=== PATIENT | female | born 1950 | race Caucasian/White ===

== ENCOUNTER 2019-01-24 10:53 | Inpatient (IN) ==
--- NOTE | 2019-01-24 11:26 | EKG Report ---
Test Performed on : 01/24/2019 11:03:01 AM Test Reason : dizziness, low bp Blood Pressure : / mmHG Vent. Rate : 090 BPM Atrial Rate : 090 BPM P-R Int : 134 ms QRS Dur : 086 ms QT Int : 370 ms P-R-T Axes : 028 001 032 degrees QTc Int : 452 ms Sinus rhythm. with occasional premature ventricular complexes. Possible Inferior infarct , age undetermined Abnormal ECG When compared with ECG of 23-JAN-2015 19:32, premature ventricular complexes. are now present ST now depressed in Lateral leads Nonspecific T wave abnormality no longer evident in Lateral leads QT has lengthened Unconfirmed Result
[2019-01-24] MEDS ORDERED: ANTIVERT PO ONE (13:13)
[2019-01-24] MEDS ORDERED: NS 1,000 ML IV ONE (13:13)
--- NOTE | 2019-01-24 13:29 | PROVIDER DOCUMENTATION ---
HPI-Neurological Disorder - General Chief Complaint: Dizziness Stated Complaint: DIZZY X A COUPLE OF WEEKS Time Seen by Provider: 01/24/19 12:48 Source: patient Allergies/Adverse Reactions: Patient Allergies Allergy/AdvReac Type Severity Reaction Status Date / Time Penicillins Allergy Mild RASH Verified 07/02/15 10:53 Home Medications: Home Medication List Medication Instructions Recorded Confirmed Last Taken Type Calcium Carbonate/Vit D3 [Caltrate 1 each PO DAILY 11/05/12 01/24/19 09/17/15 09:00 History 600 + D] Glucosamine 1,000 mg PO DAILY 11/05/12 09/18/15 09/17/15 09:00 History Multivitamin [Multivitamins] 1 each PO DAILY 11/05/12 09/18/15 09/17/15 09:00 History Omeprazole [Prilosec] 20 mg PO DAILY 11/05/12 09/18/15 09/17/15 09:00 History Diltiazem C.d. [Cardizem Cd] 180 mg PO DAILY 01/23/15 01/24/19 09/17/15 07:30 History Fexofenadine [Marcy] 180 mg PO DAILY 01/23/15 01/24/19 09/17/15 16:00 History ATORVAstatin [Lipitor] 0.5 tab PO QHS 01/24/15 01/24/19 09/17/15 21:00 History Apixaban [Eliquis] 5 mg PO BID 01/24/15 01/24/19 09/17/15 09:00 History Losartan/Hydrochlorothiazide 1 each PO DAILY 01/24/15 01/24/19 09/17/15 09:00 History [Losartan-Hctz 100-25 mg Tab] Tramadol [Ultram] 50 mg PO Q6H PRN PRN #20 tab 11/24/18 Unknown Rx - History of Present Illness-Neuro Nature of Presenting Problem: Patient is a 68 yowf who complains of dizziness x 2 months that began after a fall and head injury. Dizziness exacerbated by position changes and relieved by lying down. Reports intermittent headaches as well. Denies chest pain, SOB, extremity weakness/numbness, visual changes, or any other symptoms. She is non- toxic in appearance. Review of Systems - Adult - REVIEW OF SYSTEMS - ADULT Constitutional: reports: no symptoms reported Eyes: reports: no symptoms reported Ears, Nose, Mouth & Throat: reports: no symptoms reported Cardiovascular: reports: no symptoms reported Respiratory: reports: no symptoms reported Gastrointestinal: reports: no symptoms reported Genitourinary: reports: no symptoms reported Musculoskeletal: reports: no symptoms reported Integumentary: reports: no symptoms reported Neurological: reports: see HPI, dizziness/vertigo, headache/migraines. denies: ataxia, loss of balance, numbness, paresthesia, seizure, slurred speech, syncope, tremors Psychiatric: reports: no symptoms reported Endocrine: reports: no symptoms reported Hematologic/Lymphatic: reports: no symptoms reported Allergic/Immunologic: reports: no symptoms reported All Other Systems: Reviewed and Negative Past History - Adult - PAST MEDICAL HISTORY-ADULT Review of Records: reports: Nursing Assessment Review, Medications Reviewed, Social history reviewed & non-contributory. Cardiovascular: reports: A-Fib, HTN, hyperlipidemia Gastrointestinal: reports: GERD Obstetrical/Gynecological: reports: other (breast cancer) Genitourinary: reports: denies history Musculoskeletal: reports: denies history Neurological: reports: denies history Psychiatric: reports: denies history Endocrine/Immune: reports: denies history - PRIOR SURGERIES/PROCEDURES Surgical/Procedure History: reports: BTL - IMMUNIZATION STATUS Childhood Immunizations: See Nurse Assessment Flu Vaccine: See Nurse Assessment - FAMILY HISTORY Family History: reviewed, not pertinent - SOCIAL HISTORY Smoking: non-smoker Physical Exam- Neurological - Physical Exam-Neuro Initial Vital Signs Reviewed: Yes General Appearance: alert, no apparent distress. negative: lethargic, slow to respond Eye Exam: bilateral eye: normal inspection, PERRL, EOMI HENMT: normocephalic/atraumatic, moist mucous membranes, normal ENT inspection, TMs normal Head Injury: no evidence of injury Neck: non-tender, full range of motion, supple, normal inspection Respiratory: chest non-tender, lungs clear, normal breath sounds, no pleuratic chest pain, no respiratory distress, no accessory muscle use Cardiovascular: normal peripheral pulses, regular rate, rhythm, no edema, no gallop, no JVD, no murmur Abdominal Exam: normal bowel sounds, non tender, soft Extremity: normal range of motion, non-tender, normal gait, normal inspection, n ormal capillary refill materials associate Exam: normal hearing, normal speech, PERRL. negative: abnormal gag reflex, abnormal pupil position, abnormal speech, facial asymmetry, facial droop, facial paresthesias, facial weakness, hearing deficit (R), hearing deficit (L), tongue deviation to R, tongue deviation to L Coordination/Gait: normal gait Motor/Sensory: no motor deficit, no sensory deficit, no pronator drift Neurologic: materials associate II-XII nml as tested, grossly normal, no motor/sensory deficits Integumentary: normal color, normal turgor, warm/dry. negative: cyanosis, diap horesis, jaundice, mottled, pallor Psych/Mental Status: normal mood/affect, normal thought content, normal thought process, oriented x 3 - Gl[place]ow Coma Scale Best Eye Response: (4) open spontaneously Best Verbal Response: (5) oriented Best Motor Response: (6) obeys commands Progress - PLAN OF CARE/RESULTS Progress/Plan/Lab Results: Vital Signs - 8 hr 01/24/19 10:56 01/24/19 13:12 01/24/19 14:20 Temperature 98.2 F Pulse Rate 86 96 H 94 H Pulse Rate [Sitting] Pulse Rate [Standing] Pulse Rate [Supine] Respiratory Rate 16 18 17 Blood Pressure 99/62 159/85 Blood Pressure [Sitting] Blood Pressure [Standing] Blood Pressure [Supine] O2 Sat by Pulse Oximetry 93 L 94 L 92 L 01/24/19 14:26 01/24/19 14:31 01/24/19 14:32 Temperature Pulse Rate 98 H 105 H 102 H Pulse Rate [Sitting] Pulse Rate [Standing] Pulse Rate [Supine] Respiratory Rate 20 22 21 Blood Pressure 146/92 134/82 151/89 Blood Pressure [Sitting] Blood Pressure [Standing] Blood Pressure [Supine] O2 Sat by Pulse Oximetry 01/24/19 14:39 01/24/19 14:50 01/24/19 14:59 Temperature Pulse Rate 99 H 102 H Pulse Rate [Sitting] 104 H Pulse Rate [Standing] 105 H Pulse Rate [Supine] 97 H Respiratory Rate 15 22 Blood Pressure 150/92 Blood Pressure [Sitting] 141/93 Blood Pressure [Standing] 134/82 Blood Pressure [Supine] 146/92 O2 Sat by Pulse Oximetry 01/24/19 15:02 01/24/19 15:30 01/24/19 15:32 Temperature Pulse Rate 98 H 96 H 95 H Pulse Rate [Sitting] Pulse Rate [Standing] Pulse Rate [Supine] Respiratory Rate 14 17 17 Blood Pressure 141/87 131/97 Blood Pressure [Sitting] Blood Pressure [Standing] Blood Pressure [Supine] O2 Sat by Pulse Oximetry 90 L 90 L Laboratory Results - last 24 hr 01/24/19 01/24/19 01/24/19 11:07 13:21 13:21 WBC 10.41 RBC 4.91 Hgb 15.1 Hct 43.8 MCV 89.2 MCH 30.8 MCHC 34.5 RDW Std Deviation 12.7 Plt Count 185 MPV 10.0 Immature Gran % (Auto) 0.6 H Neut % (Auto) 78.2 H Lymph % (Auto) 14.1 L [place] % (Auto) 6.6 Eos % (Auto) 0.2 Baso % (Auto) 0.3 Immature Gran # (Auto) 0.06 H Neut # (Auto) 8.14 H Lymph # (Auto) 1.47 [place] # (Auto) 0.69 H Eos # (Auto) 0.02 Baso # (Auto) 0.03 PT INR PTT (Actin FS) Sodium 141 Potassium 4.4 Chloride 102 Carbon Dioxide 19 L Anion Gap 20 BUN 16 Creatinine 1.3 H Estimated GFR/1.73 m2 40 BUN/Creatinine Ratio 12 Glucose 125 H POC Glucose 171 H Calculated Osmolality 284 Calcium 9.2 Magnesium 2.1 Total Bilirubin 0.82 AST 48 H ALT 28 Alkaline Phosphatase 60 Creatine Kinase Troponin T Igd-W-Jqdvxojcylo Pept Total Protein 7.5 Albumin 4.4 Globulin 3.1 Albumin/Globulin Ratio 1.4 Urine Source Urine Color Urine Turbidity Urine pH Ur Specific [place] Urine Protein Ur Glucose (Stick) Ur Ketones (Stick) Urine Blood Urine Nitrite Urine Bilirubin Urobilinogen Dipstick Urine Leukocytes Urine WBC (Auto) Urine RBC (Auto) U Epithel Cells (Auto) Urine Bacteria (Auto) 01/24/19 01/24/19 01/24/19 13:21 13:21 13:21 WBC RBC Hgb Hct MCV MCH MCHC RDW Std Deviation Plt Count MPV Immature Gran % (Auto) Neut % (Auto) Lymph % (Auto) [place] % (Auto) Eos % (Auto) Baso % (Auto) Immature Gran # (Auto) Neut # (Auto) Lymph # (Auto) [place] # (Auto) Eos # (Auto) Baso # (Auto) PT INR PTT (Actin FS) Sodium Potassium Chloride Carbon Dioxide Anion Gap BUN Creatinine Estimated GFR/1.73 m2 BUN/Creatinine Ratio Glucose POC Glucose Calculated Osmolality Calcium Magnesium Total Bilirubin AST ALT Alkaline Phosphatase Creatine Kinase 159 Troponin T 0.336 H* Dyf-Y-Ujbsdmcqfba Pept 632 H Total Protein Albumin Globulin Albumin/Globulin Ratio Urine Source Urine Color Urine Turbidity Urine pH Ur Specific [place] Urine Protein Ur Glucose (Stick) Ur Ketones (Stick) Urine Blood Urine Nitrite Urine Bilirubin Urobilinogen Dipstick Urine Leukocytes Urine WBC (Auto) Urine RBC (Auto) U Epithel Cells (Auto) Urine Bacteria (Auto) 01/24/19 01/24/19 01/24/19 14:24 15:09 15:09 WBC RBC Hgb Hct MCV MCH MCHC RDW Std Deviation Plt Count MPV Immature Gran % (Auto) Neut % (Auto) Lymph % (Auto) [place] % (Auto) Eos % (Auto) Baso % (Auto) Immature Gran # (Auto) Neut # (Auto) Lymph # (Auto) [place] # (Auto) Eos # (Auto) Baso # (Auto) PT 15.5 INR 1.14 PTT (Actin FS) 28.8 Sodium Potassium Chloride Carbon Dioxide Anion Gap BUN Creatinine Estimated GFR/1.73 m2 BUN/Creatinine Ratio Glucose POC Glucose Calculated Osmolality Calcium Magnesium Total Bilirubin AST ALT Alkaline Phosphatase Creatine Kinase 138 Troponin T 0.344 H* Ori-P-Ouldtpmvssc Pept Total Protein Albumin Globulin Albumin/Globulin Ratio Urine Source Urine Color Urine Turbidity Urine pH Ur Specific [place] Urine Protein Ur Glucose (Stick) Ur Ketones (Stick) Urine Blood Urine Nitrite Urine Bilirubin Urobilinogen Dipstick Urine Leukocytes Urine WBC (Auto) Urine RBC (Auto) U Epithel Cells (Auto) Urine Bacteria (Auto) 01/24/19 15:11 WBC RBC Hgb Hct MCV MCH MCHC RDW Std Deviation Plt Count MPV Immature Gran % (Auto) Neut % (Auto) Lymph % (Auto) [place] % (Auto) Eos % (Auto) Baso % (Auto) Immature Gran # (Auto) Neut # (Auto) Lymph # (Auto) [place] # (Auto) Eos # (Auto) Baso # (Auto) PT INR PTT (Actin FS) Sodium Potassium Chloride Carbon Dioxide Anion Gap BUN Creatinine Estimated GFR/1.73 m2 BUN/Creatinine Ratio Glucose POC Glucose Calculated Osmolality Calcium Magnesium Total Bilirubin AST ALT Alkaline Phosphatase Creatine Kinase Troponin T Clu-F-Oztzitzfozq Pept Total Protein Albumin Globulin Albumin/Globulin Ratio Urine Source CLEAN CATCH Urine Color YELLOW Urine Turbidity HAZY Urine pH 6.0 Ur Specific [place] 1.008 Urine Protein NEGATIVE Ur Glucose (Stick) NEGATIVE Ur Ketones (Stick) TRACE A Urine Blood NEGATIVE Urine Nitrite POSITIVE A Urine Bilirubin NEGATIVE Urobilinogen Dipstick NORMAL Urine Leukocytes MODERATE A Urine WBC (Auto) TNTC A Urine RBC (Auto) <10 U Epithel Cells (Auto) <10 Urine Bacteria (Auto) 4+ Orders Category Date Time Status Cardiac Monitoring DIRECTED Care 01/24/19 13:13 Active Nursing- Obtain EKG ONCE Care 01/24/19 14:51 Active Orthostatic Vital Signs NOW Care 01/24/19 13:12 Active CHEST-2 VIEWS [RAD] Stat Exams 01/24/19 13:[address] HEAD W/O CONTRAST [CT] Stat Exams 01/24/19 13:13 Completed BNP [PRO B-NATRIURETIC PEPTIDE] Stat Lab 01/24/19 13:21 Completed CBC WITH DIFF [HEME] Stat Lab 01/24/19 13:21 Completed CK PROFILE [SP CHEM] Stat Lab 01/24/19 13:21 Completed CK PROFILE [SP CHEM] Stat Lab 01/24/19 15:09 Completed COMPREHENSIVE METABOLIC PANEL [CHEM] Stat Lab 01/24/19 13:21 Completed MAGNESIUM [CHEM] Stat Lab 01/24/19 13:21 Completed PROTIME WITH INR [COAG] Stat Lab 01/24/19 14:24 Completed PTT [COAG] Stat Lab 01/24/19 14:24 Completed TROPONIN T Stat Lab 01/24/19 13:21 Completed TROPONIN T Stat Lab 01/24/19 15:09 Completed UA NIMS W/REFLEX CULT [URINALYSIS] Stat Lab 01/24/19 15:11 Completed URINE CULTURE [RM] Routine Lab 01/24/19 16:03 Received 0.9% Sodium Chloride Inj [Ns] 1,000 ml Med 01/24/19 13:13 Discontinued IV 999 mls/hr Aspirin Med 01/24/19 14:19 Discontinued 325 mg PO NOW ONE Aspirin Med 01/24/19 14:51 Discontinued 325 mg PO NOW ONE Meclizine [Antivert] Med 01/24/19 13:13 Discontinued 25 mg PO NOW ONE Nitroglycerin Med 01/24/19 14:19 Discontinued 1 inch TOP NOW ONE EKG [EKG] Stat Ther 01/24/19 11:02 Draft EKG [EKG] Stat Ther 01/24/19 13:12 Draft EKG [EKG] Stat Ther 01/24/19 14:51 Ordered 1431- Dr. Kimani lemos. 1645- Dr. Kimani lemos to discuss repeat troponin and CK result. Pt in agreement with admission plan. Result Diagrams: 01/24/19 13:21 01/24/19 13:21 - EKG 1 Time of EKG reading by physician:: 11:05 EKG Read and Signed by:: Jatin Collins EKG Interpretation (*Must complete 3 of following elements*): Abnormal Rate: 90 Rhythm: SR with occasional PVCs QRS: normal ST Wave: normal 2 Time of EKG reading by physician:: 14:37 EKG Read and Signed by:: Jatin Collins EKG Interpretation (*Must complete 3 of following elements*): Abnormal Rate: 96 Rhythm: NSR with nonspecific ST and T wave abnormality QRS: normal ST Wave: normal - XRAY 1 XRAY Study: Chest (IMPRESSION: Negative exam. Electronically signed by Geovany Pinto 01/24/2019 2:08 PM) - CT/MRI 1 CT Study: Head (IMPRESSION: 1.No hemorrhage 2.Mild atrophy This exam was performed using automated exposure control, adjustment of mA or kV according to patient size, and/or use of iterative reconstruction technique. Electronically signed by Cornelius Dawkins 01/24/2019 2:02 PM) - CONSULTS/PCP/HOSPITALIST Notification #1 *Consult/PCP/Hospitalist*: Dr. Harman Time Discussed: 14:50 Reason/Comments: elevated troponin, dizziness Consult Disposition: other (md states to repeat tropnin and add ck profile) Departure - Departure Date of Disposition Decision: 01/24/19 Time of Disposition Decision: 17:10 DIAGNOSIS: Elevated troponin, Dizziness Disposition: ADMITTED INPATIENT 09 Certified Medical Emergency: Emergent Condition: Serious Referrals and Follow-Ups: Matt Harman MD [Primary Care Provider] - - Critical Care Note This patient required my direct & personal management of CC.: No Attestation - Physician/ NAFISA Attestation Patient care was provided by Advanced Practice Provider:: Yes Advanced Practice Provider:: Rei Gómez Advanced Practice Provider documentation review:: The Mid-level provider documentation, treatment plan and medical decision making was reviewed by the physician who agrees with all treatment and medical decision making by the MLP. The physician spent face to face time with patient:: No Advanced Practice Provider documentation review:: Supervising physician onsite and consulted in the evaluation and care of this patient. The physician did not have a face to face encounter with the patient. - NIH Stroke Scale NIH Type: Initial Evaluation Level of Consciousness: 0-Alert LOC Questions (ask month and age): 0-Answers Both Correctly LOC Commands (ask to open & close eyes;make a fist, let go): 0-Obeys Both Correctly Best Gaze (horizontal eye movement): 0-Normal Visual (use finger movement, counting or visual threat): 0-No Visual Loss Facial Palsy (show teeth or raise eyebrows & close eyes tght: 0-Symmetrical M ovement Motor Function-left arm: 0-Normal Motor Function-right arm: 0-Normal Motor Function-left le-Normal Motor Function-right le-Normal Limb Ataxia(lwsmlj-eyrb-cukgea, or heel to rios): 0-No Ataxia Sensory(pin prick to face,arms,trunk,legs-compare side/side): 0-No Ataxia Best Language(name item/read sentence.Ex-Down to Earth): 0-No Aphasia Dysarthria(Pt read words or say words Ex.Mama,Tip-Top,Thanks: 0-Normal Articulation Extinction and Inattention: 0-Normal Modified [place] Score Criteria: 0-no symptoms - HEART Score HEART Score: History: Slightly Suspicious HEART Score: ECG: Normal HEART Score: Age: > or = 65 Years HEART Score: Risk Factors for Atherosclerotic Disease: > or = 3 Risk Factors or History of Atherosclerotic Disease HEART Score: Troponin: 1-3x Normal Limit Total HEART Score:: 5
[2019-01-24 13:36] LABS: BASO# 0.03 X1000 (0.0-0.2); BASO% 0.3 % (0.0-0.8); EOS# 0.02 X1000 (0.0-0.7); EOS% 0.2 % (0.0-10.0); HEMATOCRIT 43.8 % (37.0-47.0); HEMOGLOBIN 15.1 g/dL (12.0-16.0); IMM GRAN# 0.06 X1000 (0.0-0.04); IMM GRAN% 0.6 % (0.0-0.5); LYMPH# 1.47 X1000 (1.2-3.4); LYMPH% 14.1 % (20.5-51.1); MCH 30.8 PG (27-31); MCHC 34.5 g/dL (33-37); MCV 89.2 FL (81-99); MONO# 0.69 X1000 (0.11-0.59); MONO% 6.6 % (1.7-9.3); NEUT# 8.14 X1000 (1.4-6.5); NEUT% 78.2 % (42.2-75.2); PLT 185 X1000 (130-400); RBC 4.91 XMIL (4.2-5.4); RDW 12.7 % (11.5-14.5); WBC 10.41 X1000 (4.8-10.8)
--- NOTE | 2019-01-24 14:04 | Diag Imaging Result Doc PS360 ---
EXAM: CT HEAD W/O CONTRAST HISTORY: dizziness TECHNIQUE: CT head without contrast COMPARISON: None. FINDINGS: No parenchymal hemorrhage. No epidural or subdural hematoma. No subarachnoid hemorrhage. Mild atrophy. No mass identified on this noncontrasted exam. No hydrocephalus. No sinus opacification. IMPRESSION: 1.No hemorrhage 2.Mild atrophy This exam was performed using automated exposure control, adjustment of mA or kV according to patient size, and/or use of iterative reconstruction technique. Electronically signed by Cornelius Dawkins 01/24/2019 2:02 PM
[2019-01-24 14:07] LABS: ALB/GLOB RATIO 1.4; ALBUMIN 4.4 g/dL (3.5-5.0); CALCIUM 9.2 mg/dL (8.8-10.2); CREATININE 1.3 mg/dL (0.5-0.9); MAGNESIUM 2.1 mg/dL (1.5-2.7); POTASSIUM 4.4 mmol/L (3.5-5.1); TOTAL BILIRUBIN 0.82 mg/dL (0.20-1.00); TOTAL PROTEIN 7.5 g/dL (6.3-8.3)
--- NOTE | 2019-01-24 14:10 | Diag Imaging Result Doc PS360 ---
CHEST-2 VIEWS - 01/24/2019 INDICATION: dizziness COMPARISON: 01/23/2015 FINDINGS: The lungs are normally expanded and clear. Heart size and mediastinal contours are normal. No pneumothorax or pleural effusion. IMPRESSION: Negative exam. Electronically signed by Geovany Pinto 01/24/2019 2:08 PM
[2019-01-24] MEDS ORDERED: NITROGLYCERIN TOP ONE (14:19)
[2019-01-24] MEDS ORDERED: ASPIRIN PO ONE ×2 (14:19→14:51)
--- NOTE | 2019-01-24 14:45 | EKG Report ---
Test Performed on : 01/24/2019 2:35:32 PM Test Reason : DIZZINESS Blood Pressure : / mmHG Vent. Rate : 096 BPM Atrial Rate : 096 BPM P-R Int : 126 ms QRS Dur : 080 ms QT Int : 348 ms P-R-T Axes : 066 024 017 degrees QTc Int : 439 ms Normal sinus rhythm. Nonspecific ST and T wave abnormality Abnormal ECG When compared with ECG of 24-JAN-2019 11:03, (Unconfirmed) premature ventricular complexes. are no longer present Borderline criteria for Inferior infarct are no longer present Nonspecific T wave abnormality now evident in Lateral leads Unconfirmed Result
[2019-01-24 15:03] LABS: INR 1.14; PROTIME 15.5 Seconds (11.0-16.0)
[2019-01-24 15:04] LABS: PTT 28.8 Seconds (22.3-41.8)
[2019-01-24 15:26] LABS: URINE SOURCE CLEAN CATCH
[2019-01-24 15:51] LABS: BILIRUBIN URINE NEGATIVE (NEGATIVE); BLOOD URINE NEGATIVE (NEGATIVE); COLOR YELLOW; GLUCOSE URINE NEGATIVE (NEGATIVE); KETONE URINE TRACE mg/dL (NEGATIVE); LEUKOCYTES URINE MODERATE (NEGATIVE); NITRITE URINE POSITIVE (NEGATIVE); PROTEIN URINE NEGATIVE (NEGATIVE); SP GRAVITY URINE 1.008; TURBIDITY URINE HAZY (CLEAR); UROBILINOGEN URINE NORMAL (NORMAL)
[2019-01-24 15:53] LABS: UR EPITHELIAL CELLS <10 /HPF (<10); URINE BACTERIA 4+ /HPF; URINE RBC <10 /HPF (<10); URINE WBC TNTC /HPF (<10)
[2019-01-24] MEDS ORDERED: CIPRO 400 MG/D5W 400 MG/200 ML IVPB IV ONE (17:10)
[2019-01-24] MEDS ORDERED: ROCEPHIN 1 GM in NS 50 ML IV ONE (17:13)
[2019-01-24] MEDS ORDERED: TYLENOL PO PRN (18:09)
[2019-01-24] MEDS ORDERED: ZOFRAN IV PRN (18:09)
[2019-01-24] MEDS ORDERED: NS 1,000 ML IV SCH (18:09)
[2019-01-24] MEDS: ROCEPHIN 1 GM in NS 50 ML IV SCH (18:28)
[2019-01-24] MEDS ORDERED: LIPITOR PO SCH (21:00)
[2019-01-24] MEDS: LIPITOR PO SCH (21:33)
[2019-01-24] MEDS: CARDIZEM CD PO SCH (21:34)
[2019-01-24] MEDS: ELIQUIS PO SCH (21:34)
--- NOTE | 2019-01-24 21:52 | HISTORY AND PHYSICAL ---
PRIMARY CARE PHYSICIAN: Dr. Matt Harman. CHIEF COMPLAINT: Profound dizziness, chest pain. HISTORY OF PRESENT ILLNESS: A 68-year-old, white female with a complicated past medical history presents for evaluation of above-mentioned symptoms. Pertinent history of present illness began approximately 2 months ago. At that time, patient states that she was at a car wash. While there, she stepped off of a curb and fell to the cement. The patient states she struck her head against the ground. The patient suffered a laceration and was seen in the emergency department. While there, CT scan of the head was performed which returned without acute abnormalities. The patient states she "hasn't been right since." She describes this as having frequent episodes of dizziness. The patient states that she has fallen twice. She denies having a syncopal episode. Today, patient states she natalie in usual state of health. She took a bath and soon thereafter developed a headache. This was followed by dizziness, chest pressure, and palpitations. The patient slowly walked to her bedroom. Upon doing so, she checked her vital signs. Blood pressure was noted to be 80/40. Monitor suggested an arrhythmia with possible atrial fibrillation with a heart rate of 100. The patient called her . He assisted her to the car to come to the emergency department. Upon walking, patient states she had another significant episode of dizziness causing her to fall on the dia of her car. The patient ultimately was assisted to the car and transported to the emergency department. Upon arrival, a full evaluation was pursued. A chest x-ray revealed no significant abnormalities. CT scan of the head revealed mild atrophy. EKG suggested nonspecific ST and T-wave abnormalities. Laboratory data returned significant for a slightly elevated creatinine above baseline at 1.3, normal CK level, and elevated troponin at 0.344. Urinalysis was noted to be abnormal with positive nitrites, moderate leukocytes, too many to count white blood cells, and 4+ bacteria. The patient will be admitted to the hospital for full evaluation and management of chest pain in the setting of elevated troponin/normal CK level, dizziness, and urinary tract infection. Of note, patient denies any increase in lower extremity edema, orthopnea, or PND. She does note having dyspnea on exertion associated with her dizziness. She is unsure whether she has had palpitations. She does have a history of multiple urinary tract infections. She denies significant symptoms including dysuria, hematuria, and pyuria at present time. Of note, patient did have a colonoscopy yesterday. She tolerated this procedure well. PAST MEDICAL HISTORY: 1. Allergic rhinitis. 2. History of transient global amnesia. 3. Abnormal skin examination with multiple brown nevi. 4. History of right breast cancer status post mastectomy and chemotherapy. She is treated with tamoxifen. 5. Mild left-sided carotid artery disease. 6. History of colonic polyps. 7. Coronary artery disease with minimal disease noted per left heart catheterization in 2006. 8. Depression. 9. Reflux disease. 10. Hypertension. 11. History of internal hemorrhoids. 12. Hyperlipidemia. 13. Impaired fasting glucose. 14. Long-term anticoagulation secondary to atrial fibrillation. 15. Menopause. 16. Mild cognitive impairment. 17. Osteoarthritis. 18. Overweight. 19. Paroxysmal atrial fibrillation status post ablation in 2014. She is followed by Dr. Urrutia. 20. Neuropathy. 21. Insomnia. CURRENT MEDICATIONS: 1. Marcy 180 mg daily. 2. Atorvastatin 20 mg at bedtime. 3. Calcium plus vitamin D daily. 4. Diltiazem ER 180 mg daily. 5. Eliquis 2.5 mg twice daily. 6. Flonase 2 sprays each nostril daily as needed. 7. Glucosamine and chondroitin daily. 8. Losartan/hydrochlorothiazide 100/25 daily. 9. Pantoprazole 40 mg daily. 10. Pristiq 50 mg daily. 11. Tamoxifen 20 mg daily. ALLERGIES: Patient states she is allergic to Benadryl, which causes palpitations, Crestor, which causes myalgias, Multaq, which causes nausea and vomiting, penicillin, which causes a rash, Pradaxa, which causes nausea and vomiting, and Zocor which causes myalgias. SOCIAL HISTORY: Patient is a previous smoker. She smoked 1/2 to 1 pack per day for 8 years. She quit in 1976. She drinks alcohol occasionally. She denies illicit drug use. She works as a homemaker. She enjoys grandchildren and sewing. She does not exercise routinely. FAMILY HISTORY: Patient's father passed at age 78 secondary to complications of lung cancer. Patient's mother passed at age 85 secondary to end-stage COPD and congestive heart failure. She had a stroke at age 67. REVIEW OF SYSTEMS: A 12-point review of systems was performed. Pertinent positives and negatives are noted in history present illness. PHYSICAL EXAMINATION: VITAL SIGNS: Temperature 98.2 degrees, heart rate 102, respirations 19, blood pressure is 134/89. GENERAL: Well nourished, well developed, no acute distress. HEENT: Normocephalic, atraumatic. Pupils equal, round, react to light. Extraocular muscles intact. Sclerae anicteric. Caberfae conjunctivae. Oral and nasopharynx clear without exudate. NECK: Supple. No lymphadenopathy. No thyromegaly. No bruits auscultated. CARDIOVASCULAR: Regular rate and rhythm. No significant murmurs, rubs, or gallops. PULMONARY: Clear to auscultation bilaterally. ABDOMEN: Soft, nontender, nondistended. Positive bowel sounds. EXTREMITIES: Moves all extremities well. No significant clubbing, cyanosis, or edema. NEUROLOGIC EXAMINATION: Cranial nerves 2 through 12 grossly intact. Motor and sensory grossly intact. PSYCHOLOGIC: Examination is appropriate. LABORATORY DATA: White blood cell count 10.41, hemoglobin 15.1, hematocrit 43.8, platelet count 185,000, PT 15.5, INR is 1.14, PTT is 28.8, sodium 141, potassium 4.4, chloride 102, bicarb 19, BUN 16, creatinine 1.3, glucose 125, calcium 9.2, magnesium 2.1, total bilirubin 0.82, total protein 7.5, albumin 4.4, alkaline phosphatase 60, AST 48, ALT 28, CK total 138, troponin 0.344. Urinalysis reveals trace ketones, positive nitrites, moderate leukocytes with microscopic revealing too many to count white blood cells and 4+ bacteria. ASSESSMENT AND PLAN: A 68-year-old, white female with a complicated past medical history as noted presents for evaluation of profound dizziness. Prior to this occurring, patient was noted to have chest discomfort described as a pressure. While in the emergency department, full evaluation has been pursued. The patient was found to have a normal CK with elevated troponin and a urinary tract infection. The patient's baseline creatinine is approximately 1. Creatinine is up to 1.3. Patient will be admitted to the hospital for full evaluation and management of each of these conditions. 1. Chest discomfort with elevated troponin, but normal CK level--In the setting of mild renal dysfunction, atypical symptoms, and a CT coronary calcium score in the mild range within the last year, I suspect this may be an incidental finding. She does, however, have multiple risk factors. For this reason, I do feel further aggressive intervention is warranted. Patient is already anticoagulated with Eliquis therapy. We will follow serial cardiac enzymes. We will follow patient on telemetry. We will consult Cardiology in the morning. We will go ahead and schedule an echocardiogram. We will let cardiology decide which ischemic evaluation he would like to pursue. 2. Dizziness--This is quite curious. This began after head trauma. This certainly could be a result of this certainly could be the etiology. Additional etiologies include medications, orthostasis, arrhythmia, and endocrinologic. We will hold losartan and hydrochlorothiazide for now. We will follow patient on telemetry. We will change the patient's Cardizem CD from 180 mg daily to 120 mg twice daily. If full evaluation returns negative, we will consider ENT evaluation as an outpatient. 3. Urinary tract infection--Unfortunately, this is recurrent. Her most recent culture grew a cephalosporin sensitive Escherichia coli. We will check urine and blood cultures. We will start Rocephin therapy. 4. Hypertension--The patient has noted significant lability at home. We will stop patient's losartan and hydrochlorothiazide. We will adjust Cardizem CD as noted. We will follow this. 5. Atrial fibrillation--The patient has an extended history including an ablation. As above, the patient's blood pressure cuff evaluated a heart rate automatically and suggested the possibility of atrial fibrillation. If this is indeed the case, certainly the dizziness could be secondary to an arrhythmia. We will follow patient on telemetry. We will check a magnesium level and thyroid function. We will determine if outpatient event monitor is appropriate. 6. Anticoagulation--We will continue patient on Eliquis therapy. 7. Depression--Patient recently has been transitioned to Pristiq therapy from Lexapro. A question has been raised whether this possibly could be exacerbating her dizziness. We will transition patient from Pristiq to Wellbutrin therapy. We will follow this. 8. Reflux disease--We will continue patient on pantoprazole therapy. 9. Fluid, electrolytes and nutrition-- We will monitor electrolytes. Normal saline at KVO. Cardiac prudent diet with n.p.o. after midnight. 10. Prophylaxis--Patient will be continued on Eliquis therapy. cc: Matt Harman MD
[2019-01-25 05:53] LABS: BASO# 0.04 X1000 (0.0-0.2); BASO% 0.5 % (0.0-0.8); EOS# 0.07 X1000 (0.0-0.7); EOS% 0.9 % (0.0-10.0); HEMATOCRIT 38.2 % (37.0-47.0); HEMOGLOBIN 12.8 g/dL (12.0-16.0); IMM GRAN# 0.02 X1000 (0.0-0.04); IMM GRAN% 0.2 % (0.0-0.5); LYMPH% 25.6 % (20.5-51.1); MCH 30.3 PG (27-31); MCHC 33.5 g/dL (33-37); MCV 90.5 FL (81-99); MONO% 9.8 % (1.7-9.3); MPV 10.4 FL (7.4-10.4); NEUT# 5.16 X1000 (1.4-6.5); PLT 180 X1000 (130-400); RBC 4.22 XMIL (4.2-5.4); RDW 12.7 % (11.5-14.5); WBC 8.19 X1000 (4.8-10.8)
[2019-01-25 06:24] LABS: FREE T4 0.95 ng/dL (0.93-1.70); TSH 3.48 uIUmL (0.27-4.20)
[2019-01-25 06:27] LABS: ALB/GLOB RATIO 1.4; ALBUMIN 3.4 g/dL (3.5-5.0); CALCIUM 7.9 mg/dL (8.8-10.2); POTASSIUM 3.4 mmol/L (3.5-5.1); TOTAL BILIRUBIN 0.45 mg/dL (0.20-1.00); TOTAL PROTEIN 5.8 g/dL (6.3-8.3)
--- NOTE | 2019-01-25 07:10 | EKG Report ---
Test Performed on : 01/25/2019 06:53:34 AM Test Reason : Chest pain Blood Pressure : / mmHG Vent. Rate : 082 BPM Atrial Rate : 082 BPM P-R Int : 160 ms QRS Dur : 080 ms QT Int : 382 ms P-R-T Axes : 069 056 057 degrees QTc Int : 446 ms Normal sinus rhythm. Nonspecific T wave abnormality Abnormal ECG When compared with ECG of 24-JAN-2019 14:35, (Unconfirmed) Inverted T waves have replaced nonspecific T wave abnormality in Anterior leads Confirmed by Chad WAGGONER, Tom Lazo ([id number]) on 01/25/2019 11:39:42 AM
[2019-01-25] MEDS ORDERED: KLOR-CON PO ONE (07:31)
[2019-01-25] MEDS: ELIQUIS PO SCH (09:06)
[2019-01-25] MEDS: WELLBUTRIN XL PO SCH (09:06)
[2019-01-25] MEDS: CALTRATE 600 + D PO SCH (09:06)
[2019-01-25] MEDS: PROTONIX PO SCH (09:06)
[2019-01-25] MEDS: ALLEGRA PO SCH (09:07)
[2019-01-25] MEDS: GLUCOSAMINE PO SCH (09:07)
[2019-01-25] MEDS: CARDIZEM CD PO SCH ×2 (09:18→21:02)
[2019-01-25] MEDS: NS 1,000 ML IV SCH ×2 (11:27→21:13)
[2019-01-25] MEDS: ROCEPHIN 1 GM in NS 50 ML IV SCH (17:11)
[2019-01-25] MEDS: LIPITOR PO SCH (21:11)
--- NOTE | 2019-01-25 22:00 | CARDIOLOGY CONSULTATION ---
DATE: 01/25/2019 CHIEF COMPLAINT: Dizziness and chest pain. HISTORY OF PRESENT ILLNESS: Ms. Blair is a 68-year-old female, with a recent colonoscopy having been performed. This was done 2 days ago. This morning, she was getting prepared to go to a doctor's appointment for her routine gynecologic visit. At some point during the preparations, she began feeling very dizzy. She attempted to walk down stairs and continued to have significant bouts of dizziness. At some point, she was trying to get out to the car and felt like she was going to fall and basically leaned across the vehicle. It was at this point that she decided to come into the ER for further evaluations. She reports episodes of chest discomfort occurring intermittently over the last few weeks at least. She thinks she had some bouts yesterday, but cannot recall if any of them happened specifically with the other symptomatology. These episodes she described as an aching sensation. No real radiation that she can think of. No clear evidence of exertional type symptoms. She does think that some of the episodes yesterday had a pressure type sensation in her chest and possibly palpitations. She checked her blood pressure and she had systolics in the 80s at home during these events. PAST MEDICAL HISTORY: 1. Significant for atrial flutter/atrial fibrillation, status post RFA of typical atrial flutter in 2014, along with a pulmonary venous isolation procedure performed at that time. She is followed by Dr. Matt Dixon over at the [facility] and is maintained on Eliquis. 2. History of breast cancer, status post mastectomy and chemotherapy maintained on tamoxifen. 3. Mild left-sided carotid artery disease. 4. Minimal coronary artery disease per previous cardiac catheterization in 2006. 5. Hypertension. 6. Depression. 7. Internal hemorrhoids. 8. Hyperlipidemia. 9. Osteoarthritis. 10. Obesity. 11. Neuropathy. SOCIAL HISTORY: She is . Her is present in the room today. She smoked 1-1/2 to 1 packs per day for a brief period of time having quit in 1976. Rare alcohol. FAMILY HISTORY: Father at 78 due to lung cancer. Mother at 85 due to COPD and heart failure. REVIEW OF SYSTEMS: A 10 system review of systems was negative except for those things mentioned in HPI. PHYSICAL EXAMINATION: Vital Signs: She is afebrile. Her heart rate is 79, blood pressure 112/63. On presentation, her blood pressure was 99/62. General: She is pleasant. She is in no acute distress. HEENT: Oropharynx is moist. Normal dentition. Eye examination shows pink conjunctivae. White sclerae. Neck: Examination shows no obvious thyromegaly or thyroid tenderness. Cardiovascular: She sounds to be in a regular rate and rhythm. She has no obvious murmurs. She has no S3. She has no lower extremity edema. Chest: Exam sounds clear bilaterally. She has no increased work of breathing. Abdomen: Soft, nontender, nondistended. She has no obvious organomegaly. Skin: Warm and dry throughout without any rashes. Neurological: She is moving all extremities well. She has no lateralizing deficits. Psychiatric: She is somewhat tearful at times during the examination, but otherwise appears well. PERTINENT DATA: Her CT scan shows no evidence of hemorrhage. She has mild atrophy. Her chest x- ray demonstrated an unremarkable study. No acute findings. Her EKG yesterday at 11:03 shows sinus rhythm with PVC. Subsequent EKG on the at 1435 shows sinus rhythm. She has very mild ST depression in the lateral leads. Her next EKG occurring on the at 6:53 shows sinus rhythm, with resolution of the ST depression in the lateral leads. Her white count is 8.1, hematocrit 38, platelet count 180. Sodium 141, potassium 3.4, BUN 13, creatinine is 1. Cardiac enzymes were positive with the initial being 0.336. Subsequently with a trend down to 0.101. ASSESSMENT: Ms. Blair is a 68-year-old female who presented with dizziness and some chest discomfort. PLAN: At this point, she certainly could have a troponin elevation due to mild dehydration with renal insufficiency, transient hypotension resulting in global hypoperfusion along with cardiac hypo perfusion resulting in troponin elevation. She has had some bouts of chest discomfort and has a troponinemia. I believe it is most appropriate to do a cardiac catheterization to delineate her coronary anatomy. I would allow at least 24 hours off of Eliquis prior to pursuing this. We will tentatively plan for cardiac cath around noon tomorrow. Risks, benefits and alternatives have been explained to the patient. Presently, her renal function has improved. Yesterday, her creatinine was 1.3. Today, it is 1.0. Most likely, she was dehydrated secondary to her prep for her colonoscopy. She is on aspirin therapy as well as atorvastatin and some diltiazem. She has good control of her blood pressures. I would not change her medications presently. She has complained of generally not feeling well. Having a vertigo for the last couple of months and she relates this to a fall she had a couple of months ago resulting in a laceration to her left brow area along with marked ecchymoses in the area. Perhaps these are possibly a postconcussive type syndrome. Perhaps this could be ENT pathology as well and may warrant outpatient evaluation of this. cc: MD Matt Ramos MD
--- NOTE | 2019-01-25 22:32 | ECHO REPORT ---
ORDER DATE: 01/25/2019 MEASUREMENTS: Septal thickness 1.0. Left ventricular internal diameter in diastole 5.3. Posterior wall thickness 1.0. Left ventricular internal diameter in systole 3.3. Left atrium 4.0. Aortic root 3.2. SUMMARY: 1. Adequate quality study. 2. Aortic valve is trileaflet and opens normally on 2-dimensional images. Peak instantaneous gradient across aortic valve is 14 mmHg. Aortic root is normal in size. There is mild dilatation of proximal ascending aorta. Mitral and tricuspid valves are without evidence of structural abnormality. There is mild to moderate tricuspid regurgitation. The estimated systolic PA pressure by Doppler is 50 mmHg, suggesting moderate pulmonary hypertension. Pulmonic valves was without evidence of structural abnormality. 3. Normal left ventricular dimensions demonstrated. Estimated left ventricular ejection fraction appears to be at least 65%. No regional wall motion abnormalities are evident. Doppler suggests grade 1 left ventricular diastolic dysfunction. Left atrium is borderline enlarged. Right atrium is mildly enlarged. Right ventricle is mildly enlarged with mildly reduced right ventricular systolic function. 4. No pericardial effusion. 5. Appearance of inferior vena cava suggests normal central venous pressure. CONCLUSIONS: 1. Mild to moderate tricuspid regurgitation with moderate pulmonary hypertension by Doppler. 2. Mild dilatation of proximal ascending aorta. 3. Estimated left ejection fraction at least 65% without regional wall motion abnormality evident. Doppler suggests grade 1 left ventricular diastolic dysfunction. 4. Borderline left atrial enlargement and mild right atrial enlargement. 5. Mild right ventricular enlargement with mildly reduced right ventricular systolic function. cc: MD Matt Dugan MD
--- NOTE | 2019-01-26 02:01 | PROGRESS NOTE ---
DATE: 01/25/2019 SUBJECTIVE: Upon my arrival this morning, patient stated she felt reasonably well. She denied any significant chest pain or dizziness. Throughout the day, patient states she has been reasonably active. She has tolerated p.o. This evening, patient states she is still doing reasonably well. She is prepared for left heart catheterization in the morning. She denies fevers, chills, nausea, vomiting, shortness of breath, or chest discomfort. OBJECTIVE: Vital Signs: T-max 98.8 degrees, heart rate 79 to 88, respirations 15 to 21, blood pressure 104 to 133/56 to 72. General: Well nourished, well developed, no acute distress. Cardiovascular: Regular rate and rhythm. No significant murmurs, rubs, or gallops. Pulmonary: Clear to auscultation bilaterally. Abdomen: Soft, nontender, nondistended. Positive bowel sounds. Extremities: Moves all extremities well. No significant clubbing, cyanosis, or edema. Dermatologic: Evaluation reveals no evidence of rash. LABORATORY DATA: White blood cell count 8.19, hemoglobin 12.8, hematocrit 38.2, platelet count is 180,000. Sodium 141, potassium 3.4, chloride of 104, bicarbonate 29, BUN 13, creatinine 1.0, glucose 111, calcium 7.9, magnesium 1.8, total bilirubin 0.45, total protein 5.8, albumin 3.4, alkaline phosphatase 50, AST 29, ALT 24. TSH 3.48, free T4 of 0.95. ASSESSMENT AND PLAN: 1. Chest discomfort with elevated troponin. CK level has remained within normal limits. At this point, we will need to definitively determine whether a troponin bump was ischemic in etiology. Left heart catheterization has been scheduled for tomorrow. Patient currently is asymptomatic. 2. Dizziness. The patient has experienced a significant increase in symptoms since early spring. The symptoms began after head trauma. At this point, we will continue to hold losartan and hydrochlorothiazide. Pristiq was converted to Wellbutrin. Depending on cardiac evaluation, we will consider whether ENT consultation is appropriate. 3. Urinary tract infection. We will continue patient on Rocephin therapy. We will continue to follow cultures. 4. Hypertension. Patient's blood pressure is reasonably controlled since discontinuing the losartan and hydrochlorothiazide and increasing Cardizem to 120 mg twice daily. We will continue to follow while hospitalized. 5. Atrial fibrillation. Patient has a longstanding history. The question is raised whether she is having paroxysmal events precipitating her dizziness. For now, we will follow patient on telemetry. Patient may require outpatient event monitoring. 6. Anticoagulation. We will continue patient on Eliquis therapy. 7. Depression. As above, we will transition patient from Pristiq to Wellbutrin therapy. 8. Reflux disease. The patient is adequately controlled with pantoprazole therapy. 9. Disposition. At this point, patient continues to require longterm care in a hospital setting. We will plan discharge home once appropriate. cc: Matt Harman MD
[2019-01-26] MEDS: WELLBUTRIN XL PO SCH (08:03)
[2019-01-26] MEDS: CARDIZEM CD PO SCH (08:03)
[2019-01-26] MEDS: PROTONIX PO SCH (08:04)
[2019-01-26] MEDS: CALTRATE 600 + D PO SCH (08:04)
[2019-01-26] MEDS ORDERED: ASPIRIN PO SCH (09:00)
[2019-01-26] MEDS ORDERED: NITROGLYCERIN ONE (11:44)
[2019-01-26] MEDS ORDERED: SODIUM CHLORIDE 0.9% 10 ML ONE (11:44)
[2019-01-26] MEDS ORDERED: HEPARIN 1000 UNITS/NS 2,000 UNIT/1,000 ML IV.SOLN ONE (11:44)
[2019-01-26] MEDS ORDERED: VERSED ONE ×2 (11:46→12:00)
[2019-01-26] MEDS ORDERED: DILAUDID ONE ×2 (11:46→12:00)
[2019-01-26] MEDS ORDERED: CLAVE TWINSITE 32 IN 11959 ONE (12:00)
--- NOTE | 2019-01-26 13:13 | CARDIAC CATH REPORT ---
PROCEDURE NAME: - INDICATION FOR THE PROCEDURE: Patient with a troponin elevation and chest discomfort concerning for non-ST elevation FL. PROCEDURES PERFORMED: 1. Left heart catheterization. 2. Selective coronary angiography. PROCEDURE IN DETAIL: Ms. Blari is brought to the catheterization laboratory in a fasting state. Informed consent was obtained. She is prepped in usual fashion. She was anesthetized over the right radial after Fahad's test proved adequate. A 5-Frisian sheath was placed via true Seldinger technique. Radial cocktail was administered. Catheters were introduced and hemodynamic measurements made in the ascending thoracic aorta. Coronary angiography was performed in multiple views using JL3.5 and a 3DRC. The left heart catheterization was performed using the 3DRC. On closure of procedure, all sheaths and catheters were removed. TR band was left inflated at 12 mL of air. Good capillary refill. Good hemostasis. No apparent complications. Total of 65 mL of IV contrast, 5-10 mL of blood loss. FINDINGS: 1. The left main is very short and appears normal, originates from the left coronary cusp. 2. Left anterior descending originates from the left main. Proximally there are very minimal luminal irregularities. The mid and distal vessels appear normal. The distal vessel wraps around and supplies the distal third of the inferior wall. 3. Circumflex originates from the left main. It appears to be a large and normal vessel. 4. Right coronary originates from the right coronary cusp. The ostium has a slightly anterior takeoff. There may be some very slight ostial disease of around 20% or so. It was somewhat difficult to engage with a 3DRC. Otherwise, the vessel is normal. 5. Aortic blood pressure is 130/63 with a mean of 91. Left ventricular pressure 130/2 with an LVEDP of 4. ASSESSMENT: Ms. Blair is a 68-year-old female, who presented with dizziness and had a bout of chest discomfort resulting in a troponin elevation. PLAN: She does not appear to have an ACS-related troponin elevation. Most likely her troponin elevation is due to global hypoperfusion resulting in troponin elevation. This hypoperfusion was likely secondary to volume depletion, secondary to a colonoscopy prep resulting in mild renal insufficiency, as well as hypotension. At this point, I do not have any recommendations further from a cardiac standpoint to keep her in the hospital. I will make arrangements for an outpatient ROBY. She may resume her Eliquis in the a.m. of the . Otherwise, she can continue on her current medications. cc: MD Matt Ramos MD
[2019-01-26] MEDS: ALLEGRA PO SCH (15:10)
[2019-01-26] MEDS: GLUCOSAMINE PO SCH (15:10)
[2019-01-26 17:43] VITALS: BP 154/71
[2019-01-26] MEDS: ROCEPHIN 1 GM in NS 50 ML IV SCH (18:09)
--- NOTE | 2019-01-27 00:47 | DISCHARGE SUMMARY ---
ADMISSION DATE: 01/24/2019 DISCHARGE DATE: 01/26/2019 ADMISSION DIAGNOSES: 1. Profound dizziness. 2. Chest discomfort. DISCHARGE DIAGNOSES: 1. Chest discomfort with elevated troponin, but negative left heart catheterization. 2. Dizziness, likely multifactorial. 3. Urinary tract infection, improved. 4. Hypertension, present on arrival. 5. Atrial fibrillation, present on arrival. 6. Anticoagulation, present on arrival. 7. Depression, present on arrival. 8. Reflux disease, present on arrival. CONSULTATIONS: Dr. Allen with Cardiology was consulted for further evaluation and management of elevated troponin and chest discomfort. PROCEDURES: 1. CT scan of the head was performed on 01/24/2019 which revealed no hemorrhage. Mild atrophy. 2. Chest x-rays performed on 01/24/2019 which revealed negative exam. 3. Echocardiogram was performed on 01/25/2019 which revealed mild to moderate tricuspid regurgitation with moderate pulmonary hypertension by Doppler. Mild dilation of proximal ascending aorta. Estimated left ejection fraction of at least 65% without regional wall motion abnormality evident. Doppler suggests grade 1 left ventricular diastolic dysfunction. Borderline left atrial enlargement and mild right atrial enlargement. Mild right ventricular enlargement with mildly reduced right ventricular systolic function. 4. Left heart catheterization was performed on 01/26/2019 which revealed left main is very short and appears normal which originates from the left coronary cusp. Left anterior descending originates from the left main. Proximally there are very minimal luminal irregularities. The mid and distal vessels appear normal. The distal vessel wraps around and supplies the distal 3rd of the inferior wall. Circumflex originates from the left main. It appears to be a large and normal vessel. Right coronary originates from the right coronary cusp. The ostium has a slightly anterior takeoff. There may be some very slight ostial disease of around 20% or so. It is somewhat difficult to engage with a 3D RC. Otherwise vessel is normal. Aortic blood pressure is 130/63 with a mean of 91. Left ventricular pressure 130/2 with LVEDP of 4. HISTORY AND PHYSICAL EXAMINATION: See admit note. PHYSICAL EXAMINATION PRIOR TO DISCHARGE: Temperature 98 degrees, heart rate 81, respirations 16, blood pressure is 154/71. General: Well nourished, well developed, no acute distress. Cardiovascular: Regular rate and rhythm. No significant murmurs, rubs, or gallops. Pulmonary: Clear to auscultation bilaterally. Abdomen: Soft, nontender, nondistended. Positive bowel sounds. Extremities: Moves all extremities well. No significant clubbing, cyanosis, or edema. Dermatologic: Evaluation reveals no evidence of rash. LABORATORY DATA: Prior to discharge: None. HOSPITAL COURSE: Patient was admitted as per history and physical examination. Hospital course per condition is as follows. 1. Chest discomfort with elevated troponin-upon admission, patient was noted to have an elevated troponin with normal CK level. Chest discomfort was noted to be atypical. Because of the elevated troponin and cardiac risk factors, Cardiology was consulted. Echocardiogram was performed with above-mentioned results. Left heart catheterization was performed with above- mentioned results. The patient will be discharged home with cardiac prudent medications. We will follow her clinical course closely. At this point, ischemic etiology is likely not the source of her underlying dizziness. 2. Dizziness-this is quite interesting. Symptoms have been present since closed head trauma in early spring. The patient is also concerned this could be secondary to the initiation of Pristiq. While hospitalized, patient's dizziness remained controlled. The patient's Pristiq was converted to Wellbutrin therapy. Her losartan and hydrochlorothiazide were held as a better regimen for possible atrial fibrillation was placed as described below. The patient will be encouraged to hydrate aggressively over the weekend. Should symptoms persist after full cardiac evaluation and medication etiologies are ruled out, we will consider ENT consultation. 3. Urinary tract infection-the patient was treated with Rocephin while hospitalized. She will complete 5 additional days of Keflex as an outpatient. 4. Hypertension-upon admission, patient was treated with losartan/hydrochlorothiazide and Cardizem therapy. Because of the concern that patient could be having paroxysmal atrial fibrillation, patient was converted to Cardizem 120 mg twice daily. Losartan and hydrochlorothiazide were held. Patient will keep a blood pressure log between now and next visit. We will determine if further titration is necessary. 5. Atrial fibrillation-patient has a longstanding history. She is status post ablation by Dr. Yanez. I am concerned that atrial fibrillation may be precipitating her dizziness. Cardizem was converted to 120 mg twice daily. Eliquis was continued. We have arranged for patient to have an event monitor as an outpatient. We will follow this as well. 6. Anticoagulation-patient was continued on Eliquis therapy while hospitalized. 7. Depression-the patient has longstanding disease. Upon admission, she was treated with Pristiq therapy. Question was raised whether this may be precipitating her dizziness. The patient was transitioned to Wellbutrin therapy. We will follow this as an outpatient. 8. Reflux disease-patient was continued on pantoprazole therapy while hospitalized. Symptoms are controlled at time of discharge. DISCHARGE CONDITION: Good. DISPOSITION: Discharge to home. MEDICATIONS: 1. Cardizem CD 120 mg twice daily. 2. Protonix 40 mg daily. 3. Acetaminophen 650 mg every 4 hours as needed. 4. Wellbutrin XL 150 mg daily. 5. Eliquis 2.5 mg twice daily. 6. Glucosamine 1000 mg daily. 7. Multivitamin daily. 8. Calcium plus vitamin D daily. 9. Marcy 180 mg daily. 10. Lipitor 40 mg 1/2 tablet at bedtime. 11. Keflex 500 mg twice daily for 5 days. FOLLOWUP: Patient is to follow up with me in approximately 1 to 2 weeks. cc: Matt Harman MD
[2019-01-28] MEDS ORDERED: ELIQUIS PO SCH (09:00)
== END 2019-01-26 18:09 | disposition home or self-care (01) | DRG 287 ==
LOC: ED 10:53 → EDIPHOLD 18:35 → 3N 21:51 → 3S 01-25 18:53
PROVIDERS: ADMIT Internal Medicine; ATTEND Internal Medicine
CPT/HCPCS: 70450; 71020; 71046; 80053; 81001; 82550; 82948; 83735; 83880; 84439; 84443; 84484; 85025; 85610; 85730; 87040; 87077; 87088; 87186; 88305; 93005; 93010; 93306; 93458; 94799; 96365; 99285; A9270; J0696; J0744; J1170; J1644; J2250; J7030; Q9967; XXXXX